=== PATIENT | female | born 1970 | race Caucasian/White ===

== ENCOUNTER 2016-02-24 08:21 | Day surgery (SDC) | payer OTHER ==
[~2016-02-24 08:21] MED LIST: ceFAZolin 2 GM/DEXTROSE 100 ML IV ONE
[2016-02-24] MEDS ORDERED: LR 1,000 ML IV ONE (08:52)
[2016-02-24] MEDS ORDERED: LIDOCAINE 1% 5 ML SDV ID PRN (08:52)
[2016-02-24 09:21] LABS: % IMMATURE GRANULYOCYTES 0.3 % (0.0-1.1); ABSOLUTE IMMATURE GRANULOCYTES 0.02 10^3/uL (0.00-0.10); ADD DIFF? NO; ADD MORPH? NO; ADD SCAN? NO; ATYPICAL LYMPHOCYTE FLAG 10 (0-99); FRAGMENT RBC FLAG 0 (0-99); HEMATOCRIT 41.8 % (38.0-47.0); HEMOGLOBIN 13.7 g/dL (12.6-16.3); LEFT SHIFT FLG 20 (0-99); LIPEMIA HEMOLYSIS FLAG 80 (0-99); MEAN CELL HEMOGLOBIN 26.2 pg (27.9-34.1); MEAN CELL HEMOGLOBIN CONCENTR. 32.8 g/dL (32.4-36.7); MEAN CELL VOLUME 79.9 fL (81.5-99.8); PLATELET CLUMPS FLAG 0 (0-99); PLATELET COUNT 205 10^3/uL (150-400); RED BLOOD CELL COUNT 5.23 10^6/uL (4.18-5.33); RED CELL DISTRIBUTION WIDTH 14.2 % (11.5-15.2)
[2016-02-24] MEDS ORDERED: CEFAZOLIN 2 GM/DEXTROSE/100 ML BAG IV ONE (09:25)
[2016-02-24 09:46] LABS: INR 0.98 (0.83-1.16); PROTIME(PATIENT) 12.9 SEC (12.0-15.0)
[2016-02-24 09:53] LABS: ANION GAP 19 mEq/L (8-16); CALCIUM 8.8 mg/dL (8.5-10.4); CARBON DIOXIDE 24 mEq/l (22-31); CHLORIDE 106 mEq/L (97-110); CREATININE 0.8 mg/dL (0.6-1.0); GLOMERULAR FILTRATION RATE > 60; GLUCOSE 87 mg/dL (70-100); POTASSIUM 4.1 mEq/L (3.5-5.2); SODIUM 149 mEq/L (134-144)
[2016-02-24] MEDS ORDERED: BUPIVACAINE/EPI 0.25% 30 ML SDV ONE (11:44)
[2016-02-24] MEDS ORDERED: THROMBIN (RECOMBINANT) 5,000 UNIT VIAL TP ONE (11:44)
[2016-02-24] MEDS ORDERED: SKIN ADHESIVE (DERMABOND) 1 EACH TP ONE (11:44)
[2016-02-24] MEDS ORDERED: BACITRACIN 50,000 UNITS/10 ML SYR IRR ONE (11:45)
[2016-02-24] MEDS ORDERED: MIDAZOLAM 2 MG/2 ML VIAL ONE (11:46)
[2016-02-24] MEDS ORDERED: fentaNYL 100 MCG/2 ML INJ ONE ×2 (11:59→13:27)
[2016-02-24] MEDS ORDERED: KETOROLAC 30 MG/1 ML SDV ONE (12:00)
[2016-02-24] MEDS ORDERED: ONDANSETRON 4 MG/2 ML VIAL ONE (12:00)
[2016-02-24] MEDS ORDERED: DEXAMETHASONE 4 MG/ML VIAL ONE (12:00)
[2016-02-24] MEDS ORDERED: ROCURONIUM 50 MG/5 ML VIAL ONE (12:04)
[2016-02-24] MEDS ORDERED: PROPOFOL 200 MG/20 ML VIAL ONE (12:06)
[2016-02-24] MEDS ORDERED: LIDOCAINE 2% 5 ML SDV ONE (12:06)
[2016-02-24] MEDS ORDERED: BUPIVACAINE 0.25% 30 ML SDV ONE (13:06)
--- NOTE | 2016-02-24 13:55 | POSTOPPROG ---
Post Op Note Date of Operation: 02/24/16 Surgeon: Sebas Roy License Registration Examiner: Robin Garcia Anesthesia: GET(General Endotracheal) Pre-op Diagnosis: HNP L4-5 Post-op Diagnosis: same Indication: radiculopathy L5 Procedure: left L4-5 microdiscectomy Findings: HNP L4-5 Inf/Abcess present in the surg proc area at time of surgery?: No EBL: Minimal Complications: none Specimen(s): none
--- NOTE | 2016-02-24 14:13 | GPN ---
[f rep st] PROCEDURE NOTE DATE OF PROCEDURE: 02/24/2016 [employer] SUPERVISOR: Robin Garica PA-C PROCEDURE: 1. Left L4 hemilaminotomy, medial facetectomy, microdiskectomy at L4-5. 2. Use of the operative microscope. 3. Intraoperative somatosensory-evoked potential monitoring. PREOPERATIVE DIAGNOSIS: Herniated nucleus pulposus at L4-5, with left L5 and partial S1 radiculopath ies. POSTOPERATIVE DIAGNOSIS: Herniated nucleus pulposus at L4-5, with left L5 and partial S1 radiculopat hies. BRIEF CLINICAL HISTORY: The patient is a 45-year-old woman who has had a roughly 2-month history of left-sided leg numbness and radiculopathy in L5 distribution. She has a large herniated disk at L4-5 on MRI. We brought her electively today for microdiskectomy. PROCEDURE IN DETAIL: Informed consent was obtained from the patient. The patient was brought to the operating room and was left in a supine position on the transport cart. A formal time-out was perfo rmed, identifying the patient by name, medical record number, and date of . Preoperative antibi otics were given. The endotracheal tube was placed, and general endotracheal anesthesia was smoothly induced. The patient was then turned into the prone position on the Rocco frame, and the lumbar sp ine was placed in flexion. All appropriate pressure points were padded and checked. All appropriate leads were placed for intraoperative somatosensory-evoked potential monitoring. At this point, a si ngle spinal needle was placed, and a lateral radiograph was performed confirming the L4-5 disk space. A 2 cm incision was marked appropriately, and the lumbar region was prepped and draped in the denys l sterile fashion. 6 cc of 0.25% Marcaine with epinephrine was infiltrated in the skin for hemostasi s. The skin incision was then made using a 10 blade, and the subcutaneous tissues were dissected us ing monopolar electrocautery. The fascia was opened in the midline, the left lateral edge of the L4 spinous process was dissected, and the paraspinous muscles were taken down. The L4 lamina was identi fied, and a marker was placed. Lateral radiograph again confirmed that we are at the appropriate loc ation. At this point, self-retaining retractors were placed, the microscope was brought onto the [facility] ld, and the remainder of the procedure was performed under high-power magnification. We first drille d a small hemilaminotomy at L4 using a high-speed drill. Medial facetectomy was performed using Graves casandra punches, and the yellow ligament was opened using a curet. The yellow ligament was then removed laterally, exposing the nerve root. At this point, the nerve root was retracted medially, and a sma ll rent in the posterior longitudinal ligament was seen with the disk protruding through. We removed a small piece of disk here, and then using a nerve hook, we were able to reach under the thecal sac, and a very large (2 x 3 cm) piece of disk was removed en bloc from this area. We then removed any o ther free fragments of disk from the disk space at L4-5, and the space beneath the thecal sac was pal pated with no sign of any further disk fragments. Another radiograph was performed one more time con firming the L4-5 disk space. The nerve was covered with a small piece of Marcaine-soaked Gelfoam, wh ich was later removed. The wound was then copiously irrigated using bacitracin irrigation. The fasc ia was closed using interrupted 2-0 Vicryl, the deep dermis was closed using interrupted 2-0 Vicryl, the skin was closed with subcuticular 4 Vicryl, and Dermabond was placed over the incision. All soma tosensory-evoked potentials were stable throughout the case. BLOOD LOSS: Minimal. FLUIDS: Per the anesthesia record. SPECIMENS: None. DRAINS: None. ANESTHESIA: General endotracheal. I was scrubbed and present for the entirety of the procedure. All sponge and needle counts were mckenzie ect at the end of the case. /[id number]/MODL
[2016-02-24] MEDS ORDERED: HYDROCODONE/APAP 5/325 TAB ONE (14:28)
[2016-02-24] MEDS ORDERED: HYDROCODONE/APAP 5/325 TAB PO PRN (14:34)
[2016-02-24] MEDS ORDERED: METHOCARBAMOL 750 MG TAB ONE (15:08)
[2016-02-24] MEDS ORDERED: METHOCARBAMOL 750 MG TAB PO ONE (15:30)
--- NOTE | 2016-02-24 17:52 | DX ---
Intraoperative fluoroscopy History: L4-L5 diskectomy. Comparison: MR lumbar spine January 19, 2016. Findings: A single lateral spot film shows a radiopaque marker overlying the L4-L5 disk space. Fluoro time: 3.4 seconds. Dose: 2.4 mGy. Impression: Intraoperative fluoroscopy as above.
== END 2016-02-24 16:00 | disposition home or self-care (01) ==
LOC: FSGY 08:21
PROVIDERS: ATTEND Neurological Surgery
PROC: 0SB20ZZ Excision of Lumbar Vertebral Disc, Open Approach (ICD-10-PCS; principal; 2016-02-24 10:45)
DX: M51.16 Intervertebral disc disorders with radiculopathy, lumbar region (principal); Z85.850 Personal history of malignant neoplasm of thyroid; Z86.711 Personal history of pulmonary embolism; I34.1 Nonrheumatic mitral (valve) prolapse
CPT/HCPCS: J0690; J1100; J1885; J2250; J2405; J2704; J3010

== ENCOUNTER 2016-03-17 07:11 | Observation (INO) | payer OTHER ==
--- NOTE | 2016-03-17 07:24 | EDPHY ---
H & P Stated Complaint: Pain under L breast/L shoulder;similiar to previous PE; sxs since yesterday Time Seen by Provider: 03/17/16 07:20 HPI/ROS: CHIEF COMPLAINT: Left pleuritic chest pain HISTORY OF PRESENT ILLNESS: The patient presents to the ED with a 1 day history of left-sided pleuritic chest pain. The patient does have a prior history of PE in 1997. She is uncertain whether she had a hypercoagulable workup at that time. The patient reports she did have recent lumbar spine surgery. She did report a transient episode left ankle swelling and mild ecchymosis last week. The patient does have a history of treated thyroid cancer. The patient currently only is on Synthroid. The patient denies fever, cough or congestion. She reports that she has had marked improvement in her left radicular pain since surgery. She continues to have some paresthesias in her left leg. REVIEW OF SYSTEMS: A comprehensive 10 point review of systems is otherwise negative aside from elements mentioned in the history of present illness. Source: Patient - Personal History LMP (Females 10-55): 8-14 Days Ago Current Tetanus Diphtheria and Acellular Pertussis (TDAP): Yes - Medical/Surgical History Hx Diabetes: No Other PMH: recent surgery. PE - Social History Smoking Status: Never smoked - Physical Exam Exam: General Appearance: Alert, no distress Eyes: Pupils equal and round no pallor or injection ENT, Mouth: Mucous membranes moist Respiratory: There are no retractions, lungs are clear to auscultation Cardiovascular: Regular rate and rhythm Gastrointestinal: Abdomen is soft and nontender, no masses, bowel sounds normal Neurological: Normal aside from decreased sensation to light touch along the lateral aspect of the left leg which the patient reports is chronic Skin: Warm and dry, no rashes Musculoskeletal: Neck is supple nontender Extremities: No asymmetric calf tenderness appreciated Constitutional: Initial Vital Signs Temperature (C) 36.6 C 03/17/16 07:15 Heart Rate 94 03/17/16 07:15 Respiratory Rate 16 03/17/16 07:15 Blood Pressure 148/89 H 03/17/16 07:15 O2 Sat (%) 95 03/17/16 07:15 O2 Delivery Mode Room Air Allergies/Adverse Reactions: morphine Allergy (Mild, Verified 03/17/16 07:16) Vomiting Home Medications: Medication Instructions Recorded Levothyroxine [Synthroid 150 mcg 12/14/12 (RX)] Medical Decision Making - Diagnostics EKG Interpretation: EKG: Complete interpretation has been separately recorded in the [employer] archive. Summary impression: Sinus rhythm Imaging: CT pulmonary angiogram: Bilateral pulmonary emboli noted, greater burden noted in the left lung with evidence of consolidation secondary to presumed pulmonary infarct. Study results reported to me by Dr. Adam Slade. ED Course/Re-evaluation: The patient presents to the ED with a 1 day history of left pleuritic chest pain , a one-week history of transient left ankle swelling and a prior history of PE. She is not currently anticoagulated. The patient is noted to have no significant tachycardia or hypoxemia. Given her significant past history, a CT pulmonary angiogram was ordered as she is not low risk by Wells criteria. The patient's CT pulmonary angiogram does demonstrate bilateral thromboembolic disease. She is hemodynamically stable without evidence of right heart strain clinically. The patient will require admission to the hospital for further anticoagulation. It is unclear if the patient has had a significant hypercoagulable workup in the past. We will order a hypercoagulable panel prior to giving Lovenox. Consultation was made with the hospitalist service for admission. The patient will be admitted by Dr. Erich Rodriguez. Differential Diagnosis: Differential diagnosis considered includes pulmonary embolism, pleurisy, costochondritis, DVT, myocarditis, pericarditis - Data Points Laboratory Results: Laboratory Results 03/17/16 07:30 03/17/16 07:30 03/17/16 03/17/16 07:36 07:30 WBC 5.87 10^3/uL (3.80-9.50) RBC 5.52 H 10^6/uL (4.18-5.33) Hgb 14.3 g/dL (12.6-16.3) POC Hgb 13.3 gm/dL (12.3-15.9) Hct 44.5 % (38.0-47.0) POC Hct 39 % (35.5-47.5) MCV 80.6 L fL (81.5-99.8) MCH 25.9 L pg (27.9-34.1) MCHC 32.1 L g/dL (32.4-36.7) RDW 14.0 % (11.5-15.2) Plt Count 296 10^3/uL (150-400) MPV 9.7 fL (8.7-11.7) Neut % (Auto) 75.7 H % (39.3-74.2) Lymph % (Auto) 16.4 % (15.0-45.0) [place] % (Auto) 5.5 % (4.5-13.0) Eos % (Auto) 1.4 % (0.6-7.6) Baso % (Auto) 0.5 % (0.3-1.7) Nucleat RBC Rel Count 0.0 % (0.0-0.2) Absolute Neuts (auto) 4.45 10^3/uL (1.70-6.50) Absolute Lymphs (auto) 0.96 L 10^3/uL (1.00-3.00) Absolute Monos (auto) 0.32 10^3/uL (0.30-0.80) Absolute Eos (auto) 0.08 10^3/uL (0.03-0.40) Absolute Basos (auto) 0.03 10^3/uL (0.02-0.10) Absolute Nucleated RBC 0.00 10^3/uL (0-0.01) Immature Gran % 0.5 % (0.0-1.1) Immature Gran # 0.03 10^3/uL (0.00-0.10) PT 13.2 SEC (12.0-15.0) INR 1.01 (0.83-1.16) APTT 27.6 SEC (23.0-38.0) D-Dimer 3.22 H ug/mLFEU (0.00-0.50) POC Sodium 142 mEq/L (134-144) Sodium 140 mEq/L (134-144) POC Potassium 3.5 mEq/L (3.3-5.0) Potassium 4.3 mEq/L (3.5-5.2) POC Chloride 106 mEq/L (96-108) Chloride 105 mEq/L (97-110) Carbon Dioxide 23 mEq/l (22-31) Anion Gap 12 mEq/L (8-16) POC BUN 12 mg/dL (7-23) BUN 13 mg/dL (7-23) Creatinine 0.7 mg/dL (0.6-1.0) POC Creatinine 0.7 mg/dL (0.6-1.2) Estimated GFR > 60 Glucose 107 H mg/dL (70-100) POC Glucose 99 mg/dL (70-100) Calcium 9.5 mg/dL (8.5-10.4) Medications Given: Discontinued Medications Sodium Chloride (Ns) 1,000 mls @ 0 mls/hr IV ONCE ONE PRN Reason: Wide Open Stop: 03/17/16 07:43 Last Admin: 03/17/16 07:43 Dose: 1,000 mls Point of Care Test Results: 03/17/16 07:36 POC Sodium 142 POC Potassium 3.5 POC Chloride 106 POC BUN 12 POC Creatinine 0.7 POC Glucose 99 Departure - Departure Disposition: [facility] Inpatient Acute Clinical Impression: History of malignant neoplasm of thyroid, Chronic lumbar radiculopathy Pulmonary embolism Qualifiers: Pulmonary embolism type: other Chronicity: acute Acute cor pulmonale presence: without acute cor pulmonale Qualifier Code: (I26.99) Other pulmonary embolism without acute cor pulmonale Condition: Good
--- NOTE | 2016-03-17 07:33 | CPEKG ---
Heart Rate: 84 RR Interval: 714 P-R Interval: 152 QRSD Interval: 86 QT Interval: 360 QTC Interval: 426 P Win[place]: 42 QRS [place]: -15 T Wave [place]: 1 EKG Severity - OTHERWISE NORMAL ECG - EKG Impression: SINUS RHYTHM Electronically Signed By: Laron Viveros 17-Mar-2016 07:47:05
[2016-03-17 07:38] LABS: % IMMATURE GRANULYOCYTES 0.5 % (0.0-1.1); ABSOLUTE IMMATURE GRANULOCYTES 0.03 10^3/uL (0.00-0.10); ADD DIFF? NO; ADD MORPH? NO; ADD SCAN? NO; ATYPICAL LYMPHOCYTE FLAG 0 (0-99); FRAGMENT RBC FLAG 0 (0-99); HEMATOCRIT 44.5 % (38.0-47.0); HEMOGLOBIN 14.3 g/dL (12.6-16.3); LEFT SHIFT FLG 10 (0-99); LIPEMIA HEMOLYSIS FLAG 80 (0-99); MEAN CELL HEMOGLOBIN 25.9 pg (27.9-34.1); MEAN CELL HEMOGLOBIN CONCENTR. 32.1 g/dL (32.4-36.7); MEAN CELL VOLUME 80.6 fL (81.5-99.8); MEAN PLATELET VOLUME 9.7 fL (8.7-11.7); PLATELET CLUMPS FLAG 0 (0-99); PLATELET COUNT 296 10^3/uL (150-400); RED BLOOD CELL COUNT 5.52 10^6/uL (4.18-5.33)
[2016-03-17] MEDS ORDERED: NS 1,000 ML IV ONE (07:42)
[2016-03-17 07:48] LABS: APTT 27.6 SEC (23.0-38.0); INR 1.01 (0.83-1.16); PROTIME(PATIENT) 13.2 SEC (12.0-15.0)
[2016-03-17] MEDS ORDERED: IOPAMIDOL (ISOVUE 370) 100 ML BTL IV ONE (07:52)
[2016-03-17 08:07] LABS: ANION GAP 12 mEq/L (8-16); CALCIUM 9.5 mg/dL (8.5-10.4); CARBON DIOXIDE 23 mEq/l (22-31); CHLORIDE 105 mEq/L (97-110); CREATININE 0.7 mg/dL (0.6-1.0); GLOMERULAR FILTRATION RATE > 60; GLUCOSE 107 mg/dL (70-100); POTASSIUM 4.3 mEq/L (3.5-5.2); SODIUM 140 mEq/L (134-144)
--- NOTE | 2016-03-17 09:07 | CT ---
Chest CT With IV Contrast , 8:15 a.m. History: History of pulmonary embolus, chest pain and cough x2 days, recent back surgery. Technique: Ultrafast ultrathin [address] obtained through the chest after bolus administra tion of 90 mL of Isovue 370 nonionic contrast without complication. Soft tissue and bone window evalu ation is performed. Dose reduction techniques were utilized. CT Chest: Findings: There is left lower lobe consolidation with a small left pleural effusion consistent with a pulmonary infarction. There is no evidence of pneumonia or pneumothorax. Heart size is normal and th ere is no pericardial effusion. CT Pulmonary Angiogram: Technique: Multiplanar and 3D reconstructions are reviewed on an independent 3D workstation. Findings: There are bilateral pulmonary arterial filling defects involving the left upper and lower l obe segmental vasculature as well as right lower lobe segmental vasculature to a significantly lesser degree. The right heart is not dilated and the interventricular septum has normal morphology.. Impression: Moderate volume pulmonary emboli, left greater than right. Suspect left lower lobe pulmon nelson infarction. Results called to Dr. Freeman Yuan at 9 a.m. General information for patients regarding this examination can be found at [email or web address]. If you have questions or comments about this report, please contact me at [phone] (hospital) or [phone] (cell).
[2016-03-17] MEDS ORDERED: ENOXAPARIN 80 MG/0.8 ML SYR SC ONE (09:12)
[2016-03-17] MEDS ORDERED: HYDROCODONE/APAP 5/325 TAB PO ONE ×2 (09:47→10:18)
[2016-03-17] MEDS ORDERED: ACETAMINOPHEN 325 MG TAB PO PRN (11:29)
[2016-03-17] MEDS ORDERED: HYDROCODONE/APAP 5/325 TAB PO PRN (11:29)
[2016-03-17] MEDS ORDERED: ONDANSETRON DISINTEGRATING 4 MG TAB PO PRN (11:29)
[2016-03-17] MEDS ORDERED: ONDANSETRON 4 MG/2 ML VIAL IVP PRN (11:29)
--- NOTE | 2016-03-17 12:08 | GHP ---
[f rep st] HISTORY AND PHYSICAL DATE OF ADMISSION: 03/17/2016 DATE OF EVALUATION: 03/17/2016 CHIEF COMPLAINT: Chest pain, shortness of breath. HISTORY OF PRESENT ILLNESS: A 45-year-old female with a history of a PE who is now about 3 weeks pos top from a microdiskectomy, who presented with acute shortness of breath, left-sided chest pain, over all feeling of weakness. This felt just like when she had her previous PE. She noted that she had s ome left ankle swelling for about 2 weeks before. PAST MEDICAL/SURGICAL HISTORY: 1. 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 2. History of PE. MEDICATIONS: Synthroid. ALLERGIES: Morphine. FAMILY HISTORY: No clots. SOCIAL HISTORY: She is a [employer] and would not accept a transfusion. Otherwise, she occas ionally drinks and does not smoke. REVIEW OF SYSTEMS: A 10-point review of systems is conducted and is negative except per HPI. PHYSICAL EXAM: VITAL SIGNS: Blood pressure 117/73, heart rate is 91, respiration rate 16, saturatin g 95% on room air. Temperature is 37.0. GENERAL: The patient is a very pleasant female who appears comfortable. No acute distress. HEENT: Shows her to be normocephalic, atraumatic. CARDIOVASCULAR : Regular rate and rhythm. No murmurs, rubs, or gallops. PULMONARY: Lungs clear bilaterally. ABD OMEN: Soft, nontender, nondistended. SKIN: Shows no rash. : Shows no Petersen. NEUROLOGIC: Aler t and oriented x3. She is moving all extremities. PSYCHIATRIC: Shows normal mood and affect. EXTR EMITIES: Shows her left ankle to be mildly edematous. LABS: CBC is normal. D-dimer is 3.2. Fibrinogen is 476. Basic metabolic panel is normal. DATA: 1. I personally viewed and interpreted her EKG. This shows sinus rhythm. No acute ischemic changes . 2. I reviewed her CT angio. This shows moderate volume PE, left greater than right, with likely lef t lower lobe pulmonary infarction. 3. I reviewed her chart, including Dr. Viveros' note. IMPRESSION/PLAN: 1. Acute PE: Lovenox for now. Patient and deciding on long-term options. Considering Prad axa given it has a [id number] reversal agent. She is [employer] and will not accept a bl ood transfusion. She is hemodynamically stable. I suspect she may be able to be discharged tomorrow . 2. Thyroid cancer status post thyroidectomy: No evidence of recurrence at this point. Continue her Synthroid. 3. 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 /[id number]/MODL
[2016-03-17] MEDS: HYDROmorphONE/DILAUDID 1 MG/ML SYR IVP PRN ×2 (18:38→20:56)
[2016-03-17] MEDS: ENOXAPARIN 80 MG/0.8 ML SYR SC SCH (20:58)
[2016-03-18 07:25] VITALS: BP 130/81; PULSE 77; RESP 16; TEMP 98.6; O2SAT 96
[2016-03-18] MEDS: ENOXAPARIN 80 MG/0.8 ML SYR SC SCH (08:31)
[2016-03-18] MEDS ORDERED: LEVOTHYROXINE 150 MCG TAB PO SCH (09:00)
--- NOTE | 2016-03-18 11:47 | GDS ---
[f rep st] DISCHARGE SUMMARY ALL DIAGNOSES: 1. Acute pulmonary embolism with infarction. 2. Thyroid cancer status post thyroidectomy. HOSPITAL COURSE: A 45-year-old female who presented with shortness of breath and chest pain. She fuller d a microdiskectomy about [address] angiogram showed moderate volume PE with an infarction. D iscussed with Neurosurgery. She is safe to anticoagulate. She has been started on Lovenox. She is a [employer] and would not accept a transfusion. Thus, I think Pradaxa makes the most sense f or her as it has a reversal agent that is a non-serum or blood-based reversal agent. She is comforta ble with this. She has been hemodynamically stable, has not required oxygen. Appears quite comfortable. Up walking , ambulating. She is comfortable with being discharged. I have given her warnings for Pradaxa. I will prescribe her for a total of 5 days of Lovenox and she will begin Pradaxa after that per [facility] acturer recommendations. She will follow up with Dr. Rodriguez's physician assistant superintendent and eventually take Dr. Rodriguez as her PCP. /[id number]/MODL
[2016-03-18 14:01] LABS: PROTEIN S ACTIVITY 55 % (50 - 160)
[2016-03-18 14:34] LABS: PROTEIN C ACTIVITY 95 % (70 - 150)
[2016-03-22 10:32] LABS: INTERPRETATION See Comments (())
== END 2016-03-18 11:53 | disposition home or self-care (01) ==
LOC: INTOOBSV 09:10 → F3E 10:30
PROVIDERS: ADMIT Student in an Organized Health Care Education/Training Program; ATTEND Student in an Organized Health Care Education/Training Program
DX: Z98.890 Other specified postprocedural states (principal); M54.16 Radiculopathy, lumbar region; Z79.899 Other long term (current) drug therapy; Z85.850 Personal history of malignant neoplasm of thyroid; Z86.711 Personal history of pulmonary embolism; I26.99 Other pulmonary embolism without acute cor pulmonale
CPT/HCPCS: 71275; 93005; 96360; 96372; 99285; G0378; 81332-90; 81479-90; 82947-QW; 85300-90; 85303-90; 85306-90; 86147-90; J1170; J1650; Q9967

== ENCOUNTER → 2017-01-13 | Outpatient (CLI) | payer OTHER | LOC: FIMAGING 08:26 | PROVIDERS: ATTEND Nurse Practitioner | DX: Z12.31 Encounter for screening mammogram for malignant neoplasm of breast (principal) | CPT/HCPCS: G0202 ==

== ENCOUNTER → 2018-02-06 | Outpatient (CLI) | payer OTHER | LOC: FIMAGING 08:42 | PROVIDERS: ATTEND Nurse Practitioner | DX: Z12.31 Encounter for screening mammogram for malignant neoplasm of breast (principal) ==